=== PATIENT | female | born 1955 | race African-American/Black ===

== ENCOUNTER → 2019-12-25 | Day surgery (SDC) | payer OTHER ==
[2019-12-20 10:08] LABS: BASOPHILS # (AUTO) 0.1 (0.0-0.1); BASOPHILS % 1.1 % (0.0-1.0); EOSINOPHILS # (AUTO) 0.2 (0.0-0.4); EOSINOPHILS % 2.7 % (0.0-6.0); HEMATOCRIT 34.1 % (34.2-44.1); HEMOGLOBIN 10.7 g/dL (12.0-16.0); LYMPHOCYTES % 33.6 % (18.0-39.1); MEAN CORPUSCULAR HEMOGLOBIN 26.4 pg (28-32); MEAN CORPUSCULAR HGB CONC 31.4 g/dL (31-35); MONOCYTES # (AUTO) 0.7 (0.2-0.8); MONOCYTES % 7.9 % (4.4-11.3); NEUTROPHILS # (AUTO) 4.8 (2.1-6.9); NEUTROPHILS % 54.4 % (38.7-80.0); PLATELET COUNT 326 x10e3/uL (140-360); RED BLOOD COUNT 4.06 x10e6/uL (3.6-5.1); RED CELL DISTRIBUTION WIDTH 14.6 % (11.7-14.4)
[~2019-12-25] MED LIST: EXFORGE HCT 5-1 EACH PO; FENTANYL CITRATE/PF 100MCG/2 ML INJ ONE; LIDOCAINE HCL 2% LOCAL INJ 5 ML SDV VIAL INJ ONE; MIDAZOLAM HCL 2 MG/2 ML VIAL ONE; PROPOFOL IV EMULSION 10 MG/ML 20 ML VIAL ONE; VIT D PO
[2019-12-25 08:20] VITALS: BP 136/82
--- NOTE | 2019-12-25 08:51 | Operative Report ---
DATE OF PROCEDURE: 12/25/2019 SURGEON: Everett Sarmiento MD PREOPERATIVE DIAGNOSIS: Gastroesophageal reflux disease. POSTOPERATIVE DIAGNOSES: 1. Gastroesophageal reflux disease. 2. Gastric outlet obstruction with stenosis at the level of lap band. 3. Gastritis in the antrum. PREOPERATIVE INDICATION: Assess for mucosal disease. PROCEDURES: EGD with biopsy (CPT 48241). ANESTHESIA: Moderate sedation with IV propofol. NUCLEAR SCIENTIST: None. FLUIDS: As per anesthesia. ESTIMATED BLOOD LOSS: Minimal. DRAINS: None. COMPLICATIONS: None. SPECIMENS: Antral biopsy x2 using cold forceps. FINDINGS: 1. Gastric outlet obstruction at the level of the fundus with the lap band placed. 2. Gastritis in the antrum. PROCEDURE IN DETAIL: The patient was brought to the endoscopy suite and sedated with IV propofol. A preprocedure pause was performed. An adult-sized endoscope was introduced to the oropharynx and guided to the 2nd portion of the duodenum, noted narrowing at the level of the gastric band in the proximal fundus, making the progression of the scope difficult. However, I was able to traverse this area and took some biopsies of the gastric antrum, where there was some evidence of inflammation. This was completed, we then desufflated the stomach and removed the endoscope. The patient tolerated the procedure well. Type of wound was type 1, clean. Everett Sarmiento MD C/MODL /[id number]
== END | disposition home or self-care (01) ==
LOC: ENDO 05:25 → EDBD 07:30
PROVIDERS: ATTEND Surgery
DX: K21.9 Gastro-esophageal reflux disease without esophagitis (principal); K29.70 Gastritis, unspecified, without bleeding; K31.1 Adult hypertrophic pyloric stenosis; K31.89 Other diseases of stomach and duodenum; Z98.84 Bariatric surgery status; G47.33 Obstructive sleep apnea (adult) (pediatric); I44.0 Atrioventricular block, first degree; R00.1 Bradycardia, unspecified; I10 Essential (primary) hypertension; R01.1 Cardiac murmur, unspecified; Z01.810 Encounter for preprocedural cardiovascular examination; Z01.812 Encounter for preprocedural laboratory examination; Z11.59 Encounter for screening for other viral diseases
CPT/HCPCS: 36415; 43239; 85025; 88305; 88312; 93005; J2001; J2250; J2704; J3010; U0002

== ENCOUNTER → 2020-01-29 | Day surgery (SDC) | payer OTHER ==
[2020-01-25 14:59] LABS: BASOPHILS # (AUTO) 0.1 (0.0-0.1); EOSINOPHILS # (AUTO) 0.2 (0.0-0.4); HEMATOCRIT 34.8 % (34.2-44.1); HEMOGLOBIN 10.9 g/dL (12.0-16.0); LYMPHOCYTES # (AUTO) 3.2 (1.0-3.2); LYMPHOCYTES % 31.5 % (18.0-39.1); MEAN CORPUSCULAR HEMOGLOBIN 26.1 pg (28-32); MEAN CORPUSCULAR HGB CONC 31.3 g/dL (31-35); MEAN CORPUSCULAR VOLUME 83.5 fL (81-99); MONOCYTES # (AUTO) 0.8 (0.2-0.8); NEUTROPHILS # (AUTO) 5.8 (2.1-6.9); NEUTROPHILS % 57.1 % (38.7-80.0); PLATELET COUNT 350 x10e3/uL (140-360); RED BLOOD COUNT 4.17 x10e6/uL (3.6-5.1); RED CELL DISTRIBUTION WIDTH 14.1 % (11.7-14.4)
--- NOTE | 2020-01-25 15:36 | Diagnostic Imaging Report ---
EXAMINATION: PA and lateral views of the chest. COMPARISON: None CLINICAL HISTORY: Preop for lap band removal DISCUSSION: Lines/tubes: None. Lungs: The lungs are well inflated and clear. There is no evidence of pneumonia or pulmonary edema. Pleura: There is no pleural effusion or pneumothorax. Heart and mediastinum: Cardiomediastinal silhouette is unremarkable. Pulmonary vasculature is normal. Bones and soft tissues: No acute bony abnormalities. Degenerative changes in the thoracic spine. Lap band in satisfactory position near the GE junction with port and connecting tube. IMPRESSION: No acute cardiopulmonary abnormalities. Signed by: Dr. Shawn Horvath M.D. on 01/25/2020 3:33 PM
[~2020-01-29] MED LIST changes: +BUPIVACAINE 0.25% 30ML SDV INJ ONE; +CEFAZOLIN SOD 1 GM/NS 50ML 100 ML IV ONE; +DEXAMETHASONE SOD PHOS INJ 4 MG/ML VIAL ONE; +ETOMIDATE 2 MG/ML 10 ML INJ IV ONE; +GLYCOPYRROLATE INJ 0.2 MG/ML VIAL ONE; +HYDRALAZINE HCL 20 MG/ML VIAL ONE; +HYDROMORPHONE 1MG/1ML INJ ONE; +MORPHINE SULFATE INJ 10 MG/ML ONE; +NEOSTIGMINE 1 MG/ML 10ML VIAL ONE; +ONDANSETRON HCL INJ 2MG/ML 2ML 2 MG/ML VIAL ONE; +ROCURONIUM BROMIDE 10 MG/ML 5ML VIAL IV ONE; +SEVOFLURANE INHAL SOLN 250 ML PEN BTL ONE; +VITAMIN D250 MC1 PO
[2020-01-29 09:24] LABS: ANION GAP 16.7 mmol/L (8-16); CALCIUM 9.5 mg/dL (8.4-10.2); CREATININE, SERUM 1.28 mg/dL (0.57-1.11); POTASSIUM 3.7 mmol/L (3.5-5.1)
--- NOTE | 2020-01-29 12:21 | Operative Report ---
DATE OF PROCEDURE: 01/29/2020 SURGEON: Everett Sarmiento MD PREOPERATIVE DIAGNOSES: 1. Gastric outlet obstruction. 2. Chronic gastroesophageal reflux disease. 3. Anemia. 4. Status post lap band placement. POSTOPERATIVE DIAGNOSES: 1. Gastric outlet obstruction. 2. Chronic gastroesophageal reflux disease. 3. Anemia. 4. Status post lap band placement. PREOPERATIVE INDICATION: Treat disease, prevent complications related to slipped lap band and related complications. PROCEDURES: 1. Laparoscopic removal of adjustable gastric band and subcutaneous port. 2. Open repair of ventral hernia (at the level of where the subcutaneous port was placed). ANESTHESIA: General. CRIME DATA SPECIALIST: Geremias Jacobs, application assistant (needed due to complexity of case). FLUIDS: 1 L crystalloid. ESTIMATED BLOOD LOSS: 30 mL. DRAINS: None. COMPLICATION: None. SPECIMENS: Adjustable gastric band with subcutaneous port and entire length of catheter. GRAFTS: None. FINDINGS: 1. Intra-abdominal adhesions. 2. Ventral hernia at the level of subcutaneous port. PROCEDURE IN DETAIL: The patient was brought to the operating room and was intubated under general endotracheal anesthesia. She was sterilely prepped and draped in the usual fashion. A preprocedure pause was performed identifying the patient, the use of perioperative antibiotics, intended procedure, and staff surgeon. Access was gained via a 5 mm left subcostal incision using a Veress needle. The abdomen was insufflated. Four additional trocars were placed in standard positions. The liver retractor was used to expose the lap band. There were multiple adhesions between the omentum and the anterior abdominal wall, which were carefully lysed. I then mobilized the surrounding structures around the lap band in order to free it up and the lap band was then able to be isolated and cut. It was removed along with portion of the intra-abdominal catheter through the right periumbilical port site. The port site was closed with 0 Vicryl sutures using a Jett-Rosa technique. We then verified hemostasis, removed the liver retractor and desufflated the abdomen. The trocars were removed. Next, I turned my attention to the subcutaneous port. A secondary incision was made along the transverse line from previous incision. Dissection was carried through the subcutaneous tissue down to the level of the subcutaneous port. The port was intermittently adhesed to the fascia and had metal hooks posteriorly. It was carefully circumferentially dissected and removed with the rest of the intra-abdominal portion of the catheter and was passed off. This left a defect in the fascia and I repaired this with 0 Vicryl suture in continuous fashion. We closed the rest of that port site with 3-0 Vicryl suture and 4-0 Monocryl suture in subcuticular fashion. The incision sites for the ports were also closed with 4-0 Monocryl suture in a subcuticular fashion. Dermabond dressings were applied. A 0.25% bupivacaine was used both at the preperitoneal incision sites. The patient tolerated the procedure well. Type of wound was type 1, clean. All surgical sponge and instrument counts were correct. Everett Sarmiento MD Renay/MODL /[id number]
[2020-01-29 13:20] VITALS: BP 168/72
== END | disposition home or self-care (01) ==
LOC: OR 08:01
PROVIDERS: ATTEND Surgery
DX: Z46.51 Encounter for fitting and adjustment of gastric lap band (principal); K31.1 Adult hypertrophic pyloric stenosis; K21.9 Gastro-esophageal reflux disease without esophagitis; K29.70 Gastritis, unspecified, without bleeding; G47.33 Obstructive sleep apnea (adult) (pediatric); D64.9 Anemia, unspecified; K43.9 Ventral hernia without obstruction or gangrene; R00.1 Bradycardia, unspecified; I10 Essential (primary) hypertension; R01.1 Cardiac murmur, unspecified; I44.0 Atrioventricular block, first degree; R07.9 Chest pain, unspecified; F41.9 Anxiety disorder, unspecified; Z01.812 Encounter for preprocedural laboratory examination; Z01.818 Encounter for other preprocedural examination; Z68.32 Body mass index [BMI] 32.0-32.9, adult; Z20.828 Contact with and (suspected) exposure to other viral communicable diseases
CPT/HCPCS: 36415 ×2; 43772; 71046; 80048; 85025; J0360; J0690; J1100; J1170; J2001; J2250; J2270; J2405; J2704; J2710; J3010; U0002